=== PATIENT | female | born 1985 | race Caucasian/White ===

== ENCOUNTER 2020-12-11 00:37 | Emergency (ER) | payer MEDICAID ==
[~2020-12-11] VITALS: Ht 165.1 cm; Wt 100.0 kg
[2020-12-11 00:56] VITALS: BP 144/67
[2020-12-11] MEDS ORDERED: clindamycin 150mg capsule PO ONE (02:15)
[2020-12-11] MEDS ORDERED: CLIN300C63 PO (02:17)
== END 2020-12-11 03:42 | disposition home or self-care (01) ==
LOC: ER 00:37
DX: L03.115 Cellulitis of right lower limb (principal); Z88.5 Allergy status to narcotic agent; Z79.2 Long term (current) use of antibiotics
CPT/HCPCS: 99283